=== PATIENT | male | born 1995 | race Caucasian/White ===

== ENCOUNTER 2017-04-09 09:56 | Emergency (ER) | payer BC ==
[~2017-04-09] VITALS: Ht 185.4 cm; Wt 64.9 kg
[2017-04-09 10:16] VITALS: TEMP 37.1; Ht 185.4 cm; Wt 64.9 kg
[2017-04-09] MEDS ORDERED: DIPHTHERIA/TETANUS/PERTUSSIS 0.5 ML SYR/VIAL IM. ONE (11:00)
--- NOTE | 2017-04-09 11:04 | EMERGENCY ROOM VISIT NOTE ---
ED Visit Note First contact with patient: 10:22 CHIEF COMPLAINT: Hand injury HISTORY OF PRESENT ILLNESS: This 21-year-old male patient presents to the emergency department concerned for left hand injury. Patient states 5 days ago that his dog bit him on the hand. The bite was provoked. The patient states that his dog is up-to-date on immunizations including rabies shot. Patient states that his employer sent him to the ED to be evaluated for possible need for rabies coverage. Patient also notes that his last tetanus was more than 10 years ago and he would like this to be updated today. Patient states that he has been cleaning the wound on his hand with some warm soapy water and antibiotic ointment. He states the hand wounds have been improving, the swelling has gone down, and he denies any pain currently. He denies any redness , pus drainage, streaking, fever/chills. REVIEW OF SYSTEMS: GENERAL: No fever or chills, easy fatigue, loss of appetite, or significant weight change. NEUROLOGICAL: No headache, change in mental status, weakness, numbness, or dizziness.. PMH: The patient is healthy; there is no significant medical or surgical history. SOCIAL HISTORY: Patient lives at home. PHYSICAL EXAM: Vital Signs: Reviewed Nurse's notes. The base of the left palm is mildly swollen and nontender. There are several healing abrasions on the palmar aspect of the hand, and the thumb. Flexion and extension of the fingers is full and strong. There is no erythema, warmth, or discharge. Radial pulse is 2+, cap refill brisk, sensation and motor function fully intact. EMERGENCY DEPARTMENT COURSE: I examined the patient and discussed plan of treatment with him. He affirms that his dog is up-to-date on immunizations as well as rabies, I informed him he therefore does not require rabies prophylaxis at this time. He does state that his last tetanus shot was probably 10 years ago, he would like this to be updated today, this was ordered and given. Given that his injury was 5 days ago and he reports improvement with no exam findings or concerning symptoms for developing infection, I do not feel antibiotic coverage is necessary at this time. I did offer antibiotics to the patient, he prefers not to take these at this time because he feels his hand is improving. He states that he needs a note stating he can go back to work, this was provided. Patient was instructed on concerning signs for infection to watch for , and plans for follow-up, he verbalized understanding. Patient was discharged home in stable condition and ambulatory. Current/Historical Medications Scheduled PRN Ibuprofen (Advil), 600 MG PO DAILY PRN for Headache or Pain Allergies Coded Allergies: No Known Allergies (Unverified , 04/09/17) Vital Signs Date Time Temp Pulse Resp B/P (MAP) Pulse Ox O2 Delivery O2 Flow Rate FiO2 04/09/17 11:20 72 15 147/84 97 04/09/17 10:16 37.1 76 18 145/77 98 Room Air Medications Administered Medications (Trade) Dose Ordered Sig/Christiano Route Start Time Stop Time Status Last Admin Dose Admin Diphtheria/ Pertussis/Tetanus Vacc (Adacel Inj) 0.5 ml ONCE ONCE IM. 04/09/17 11:00 04/09/17 11:01 DC 04/09/17 11:10 0.5 ML Departure Information Impression Primary Impression: Dog bite of multiple sites of left hand and fingers Dispostion Home / Self-Care Condition GOOD Referrals No Doctor, Assigned (PCP) Patient Instructions ED Bite Dog, [employer] [place] Additional Instructions Keep the hand wounds clean and dry. You may continue to apply antibiotic ointment for the next few days. Keep the wounds covered at all times when you are at work, and wear gloves to protect from exposure to dirt. You may take Ibuprofen or Tylenol as needed for pain. Monitor for any signs of developing infection, including redness, increased swelling or pain, streaking up the hand or arm, pus drainage, fever/chills, or any other concerns. You should seek immediate medical attention for any of these signs. Follow-up with your PCP in the next few days to recheck your hand, or sooner for any worsening symptoms as discussed above. Work Instructions Return To Work: 1 day Specific Date: 04/09/2017 Additional Work Instructions: The patient may return to work today. No restrictions, but he should keep the wounds covered at all times and wear gloves for any dirty work. He does not require rabies prophylaxis treatment. Problem Qualifiers Primary Impression: Dog bite of multiple sites of left hand and fingers Encounter type: initial encounter Qualified Codes: S61.452A - Open bite of left hand, initial encounter; S61.259A - Open bite of unspecified finger without damage to nail, initial encounter; W54.0XXA - Bitten by dog, initial encounter
[2017-04-09] MEDS ORDERED: IBUP-1050 PO (11:05)
[2017-04-09 11:20] VITALS: BP 147/84; PULSE 72; O2SAT 97
== END 2017-04-09 11:20 | disposition home or self-care (01) ==
LOC: C.EDB 09:57 → C.EDA 11:20
DX: S61.452A Open bite of left hand, initial encounter (principal); S61.259A Open bite of unspecified finger without damage to nail, initial encounter; Z23 Encounter for immunization; W54.0XXA Bitten by dog, initial encounter